=== PATIENT | male | born 2005 | race Caucasian/White ===

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

== ENCOUNTER → 2024-01-18 07:06 | Outpatient (REF) | payer BC, OTHER, SELFPAY | LOC: RAD 07:06 | PROVIDERS: ATTENDING PHYSICIAN Family Medicine | DX: R93.89 Abnormal findings on diagnostic imaging of other specified body structures (principal) | CPT/HCPCS: 71260; Q9967 ==

== ENCOUNTER → 2024-06-30 12:02 | Outpatient (REF) | payer BC, OTHER, SELFPAY ==
--- NOTE | 2024-06-30 14:03 | CARDSERVLU ---
Echocardiogram with [facility] completed after protocol screening completed. Allergies verified.
Patent IV site: _Right antecubital 22 G PC____
IV site flushed with 0.9% NaCl pre and post administration.
Diluted bolus method utilized to enhance visualization of ventricular pierre.
Total volume given: __3__ mL
Patient tolerated all procedures well without complications.
== END ==
LOC: RCS 12:02
PROVIDERS: ATTENDING PHYSICIAN Internal Medicine Cardiovascular Disease; FAMILY PHYSICIAN Family Medicine
DX: I37.1 Nonrheumatic pulmonary valve insufficiency (principal); I37.0 Nonrheumatic pulmonary valve stenosis; Z98.890 Other specified postprocedural states
CPT/HCPCS: 93306; Q9950